=== PATIENT | female | born 1965 | race Two or more races ===

== ENCOUNTER 2018-11-25 12:00 | Inpatient (IN) | payer OTHER ==
[~2018-11-25] VITALS: Ht 162.6 cm; Wt 69.4 kg
[2018-11-25] MEDS ORDERED: SYNTH PO (14:54)
[2018-11-25] MEDS ORDERED: VASOTEC2.5 MG PO (14:54)
[2018-12-04] MEDS ORDERED: SYNTHROID175 MCG PO (08:27)
[2018-12-05] MEDS ORDERED: GABAPENTIN800 MG PO (10:40)
[2018-12-05] MEDS ORDERED: DOCUSATE SODIU100 MG PO (10:40)
[2018-12-05] MEDS ORDERED: AMOX-CLAV 875-1 EACH PO (10:41)
[2018-12-05] MEDS ORDERED: CLONAZEPAM0.5 M1 PO (10:42)
[2018-12-05] MEDS ORDERED: PERCOCET 5-3251 EACH PO (10:42)
== END 2018-12-05 17:38 | disposition home or self-care (01) | DRG 455 ==
LOC: O/R 12-04 06:00 → RECOVERY 12-04 07:00 → SURH 12-04 14:27
PROVIDERS: ADMIT Orthopaedic Surgery Orthopaedic Surgery of the Spine
PROC: 0SG1071 Fusion of 2 or more Lumbar Vertebral Joints with Autologous Tissue Substitute, Posterior Approach, Posterior Column, Open Approach (ICD-10-PCS; 2018-12-04)
PROC: 0SG10AJ Fusion of 2 or more Lumbar Vertebral Joints with Interbody Fusion Device, Posterior Approach, Anterior Column, Open Approach (ICD-10-PCS; 2018-12-04)
PROC: 0ST20ZZ Resection of Lumbar Vertebral Disc, Open Approach (ICD-10-PCS; 2018-12-04)
PROC: 07DS3ZZ Extraction of Vertebral Bone Marrow, Percutaneous Approach (ICD-10-PCS; 2018-12-04)
PROC: 0SG10A0 Fusion of 2 or more Lumbar Vertebral Joints with Interbody Fusion Device, Anterior Approach, Anterior Column, Open Approach (ICD-10-PCS; principal; 2018-12-04 07:00)
DX: M47.26 Other spondylosis with radiculopathy, lumbar region (principal); M48.062 Spinal stenosis, lumbar region with neurogenic claudication; M96.1 Postlaminectomy syndrome, not elsewhere classified; M51.16 Intervertebral disc disorders with radiculopathy, lumbar region; I10 Essential (primary) hypertension; E03.8 Other specified hypothyroidism